=== PATIENT | male | born 1965 | race Caucasian/White ===

== ENCOUNTER 2017-09-25 19:21 | Observation (INO) | payer OTHER ==
--- NOTE | 2017-09-25 19:35 | PDOC ---
Attending Attestation - HPI HPI: 09/25/17 22:15 Patient is a 52 year old male with a significant past medical history of DM, hypertension, hyperlipidemia, PVD, S/P right below knee amputation, myeloproliferative disorder, h/o Hep b and c, hyperkalemia, who presents to the ED with complaints of general body shaking that occurred 10 minutes prior to arrival. As per patient's , patient was walking to the refrigerator to get juice when he began to experience general body shakes prompting her call EMS to have him brought to the ED for further evaluation. She reports patient has experienced this episode before and was found to have low blood sugar. Patient' s reports patient experienced x1 episode of vomiting, stating it was filled with what he previously just ate. As per EMS, BGL of patient was determined on scene to be 42, and was raised to 54 after administering oral glucose. Denies chest pain, Sob. Denies nausea, vomiting. Denies contact with sick individuals, out of state travelling. Denies any other symptoms. Allergies: None Social history: No smoking. No alcohol. No illicit drugs. Surgical history: None PMD: Dr. Saeed Madison <Rohan Colindres - Last Filed: 09/25/17 22:15> - Resident Resident Name: Lorelei Lemos - ED Attending Attestation I have performed the following: I have examined & evaluated the patient, The case was reviewed & discussed with the resident, I agree w/resident's findings & plan - Physicial Exam PE: 09/26/17 05:40 Pt has right Leg amputation. Left lower leg has PVD chronic rash and redness. Pt also has long uncut toenails. Pt has normal heart and lungs. He is overweight. Pt will be admitted for monitoring, as he took 4x the [employer]'s upper limit of Glargine. - Medical Decision Making 09/26/17 05:42 Pt will be admitted to med surg. He ought to get vascular and podiatry consultation in house. <Cheyenne Falk - Last Filed: 09/26/17 05:42>
--- NOTE | 2017-09-25 19:47 | PDOC ---
History of Present Illness <Cheyenne Falk - Last Filed: 09/25/17 22:23> - History of Present Illness Initial Comments: 09/25/17 20:08 52 year old male with a history of DM of unknown type and R AKA 2/2 DM , who presents s/p episode of shaking as witnessed by the . The patient attempted to get juice but noted increased severity of the shaking and vomiting food, so called the ambulance. There was no LOC, fall or head trauma. The patient takes Novolog 50 units BID and Basaglar 45 units at noon daily. Patient and do not have a way to check blood sugars at home, but the patient takes insulin regularly. The patient has had prior episodes of shaking that have resolved. Denies chest pain, abdominal pain, vomiting blood, etoh use. No other complaints at this time. Allergies: NKDA Past surgical history: R AKA Social History: lives with PMD: DM, unkown mental condition requiring risperidone, hypertension. 09/25/17 20:23 <Lorelei Lemos - Last Filed: 09/25/17 22:28> - General Chief Complaint: Blood Sugar Problem Stated Complaint: VOMITING Time Seen by Provider: 09/25/17 19:30 Past History <Cheyenne Falk - Last Filed: 09/25/17 22:23> - Past Medical History Asthma: Yes Diabetes: Yes (IDDM) HTN: Yes Hypercholesterolemia: Yes Psychiatric Problems: Yes (psych d/o) - Surgical History Orthopedic Surgery: Yes ([facility] 07/19/13) - Family Disease History Family Disease History: Diabetes: Father, Heart Disease: Father - Immunization History Immunization Up to Date: Yes - Suicide/Smoking/Psychosocial Hx Smoking History: Never smoked Have you smoked in the past 12 months: No Hx Alcohol Use: No Drug/Substance Use Hx: No (patient denies) Substance Use Type: None Hx Substance Use Treatment: No <Lorelei Lemos - Last Filed: 09/25/17 22:28> - Past Medical History Allergies/Adverse Reactions: Allergies Allergy/AdvReac Type Severity Reaction Status Date / Time No Known Allergies Allergy Verified 09/25/17 19:30 Home Medications: Ambulatory Orders Hydroxyurea 500 mg PO ASDIR 12/27/13 Insulin Glargine,Hum.rec.anlog [Lantus (10mL VIAL) -] 45 units SQ HS 12/27/13 Melatonin 3 mg PO HS 12/27/13 Omeprazole [Prilosec] 20 mg PO AM 12/27/13 Ziprasidone HCl [Geodon] 80 mg PO DAILY 12/27/13 metFORMIN HCL [Glucophage -] 500 mg PO BID 12/27/13 Ascorbate Calcium [Vitamin C] 500 mg PO DAILY 06/27/14 Cholecalciferol (Vitamin D3) [Vitamin D3] 2,000 unit PO DAILY 06/27/14 Acetaminophen [Tylenol .Regular Strength -] 325 mg PO Q4H PRN #60 tablet Albuterol 0.083% Nebulizer Shruthi [Ventolin 0.083% Nebulizer Soln -] 1 neb NEB QIDR #100 vial 07/06/14 Ascorbic Acid [Vitamin C -] 500 mg PO DAILY tablet 07/06/14 Aspirin 81 mg PO DAILY #0 07/06/14 Budesonide/Formeterol Fumarate [SYMBICORT 160/4.5mcg -] 2 inh IH BID #1 inhaler 07/06/14 Cholecalciferol (Vitamin D3) [Vitamin D3 -] 2,000 unit PO DAILY tab 07/06/14 Diltiazem Cd [Cardizem Cd -] 120 mg PO DAILY #30 cap.cd.24h 07/06/14 metFORMIN HCL [Glucophage -] 500 mg PO BIDI tablet 07/06/14 predniSONE [Deltasone -] 20 mg PO BID #30 tablet 07/06/14 Review of Systems - Review of Systems Is the patient limited Slovenian proficient: Yes Constitutional: No: Loss of Appetite, Weakness HEENTM: No: Blurred Vision, Recent change in vision, Double Vision, Tinnitus, Hearing Loss Respiratory: Yes: Cough Cardiac (ROS): No: Chest Pain, Palpitations, Chest Tightness ABD/GI: Yes: Vomiting. No: Constipated, Diarrhea : No: Burning, Dysuria, Hematuria, Pain, Urgency Musculoskeletal: No: Muscle Pain Neurological: Yes: Dizziness. No: Headache, Seizure, Weakness <Lorelei Lemos - Last Filed: 09/25/17 22:28> *Physical Exam - Vital Signs Last Vital Signs Temp Pulse Resp BP Pulse Ox 97.6 F 74 18 133/75 99 09/25/17 19:30 09/25/17 19:30 09/25/17 19:30 09/25/17 19:30 09/25/17 19:30 <Cheyenne Falk - Last Filed: 09/25/17 22:23> - Physical Exam Comments: 09/25/17 20:21 GENERAL: Awake, alert, and fully oriented, in no acute distress HEAD: No signs of trauma, normocephalic, atraumatic EYES: PERRLA, EOMI, sclera anicteric, conjunctiva clear ENT: Moist mucosa LUNGS: No distress, speaks full sentences, expiratory wheeze in all lung [place] HEART: Regular rate and rhythm, normal S1 and S2, no murmurs, rubs or gallops, peripheral pulses normal and equal bilaterally. ABDOMEN: Soft, nontender, normoactive bowel sounds. No guarding, no rebound. No masses EXTREMITIES : + R AKA, Normal inspection, Normal range of motion, + L edema w/ 1 + pitting edema . No clubbing or cyanosis. NEUROLOGICAL: Cranial nerves II through XII grossly intact. Normal speech, no focal sensorimotor deficits SKIN: Warm, Dry, normal turgor, no rashes or lesions noted <Lorelei Lemos - Last Filed: 09/25/17 22:28> ED Treatment Course - LABORATORY CBC & Chemistry Diagram: 09/25/17 20:12 09/25/17 20:12 - ADDITIONAL ORDERS Additional order review: Laboratory Results 09/25/17 09/25/17 09/25/17 20:20 20:12 19:28 Sodium 140 Potassium 3.8 Chloride 105 Carbon Dioxide 30 Anion Gap 5 L BUN 11 Creatinine 0.9 Creat Clearance w eGFR > 60 POC Glucometer 62.65432 Random Glucose 70 L D Calcium 8.7 Total Bilirubin 0.4 AST 86 H D ALT 131 H D Alkaline Phosphatase 85 Total Protein 7.1 Albumin 3.5 Urine Color Straw Urine Appearance Clear Urine pH 7.0 Ur Specific [place] 1.004 Urine Protein Negative Urine Glucose (UA) Negative Urine Ketones Negative Urine Blood 1+ H Urine Nitrite Negative Urine Bilirubin Negative Urine Urobilinogen Negative Ur Leukocyte Esterase Negative 09/25/17 09/25/17 20:12 19:28 RBC 3.96 L MCV 98.8 H MCHC 34.2 RDW 12.6 D MPV 7.7 POC Glucometer 62.50813 <Cheyenne Falk - Last Filed: 09/25/17 22:23> - LABORATORY CBC & Chemistry Diagram: 09/25/17 20:12 09/25/17 20:12 <Lorelei Lemos - Last Filed: 09/25/17 22:28> Medical Decision Making - Medical Decision Making 09/25/17 20:24 52 year old male with a history of DM of unknown type and R AKA 2/2 DM , who presents s/p episode of shaking as witnessed by the . The patient has had similar episodes in the past that were due to hypoglycemia. En route to the ED POC glucose was 50 and 62 in the ED. The patient last took Novolog 50 units at 1500 and Basaglar 45 units at 1200. Patients symptoms and history are most consistent with hypoglycemia, also considered ACS, seizure, uti. These are less likely etiologies, however were considered as patient has a history of chest pain and takes ASA PRN, has unknown psychiatric/mental condition, and requires care by . Novolog and Basaglar pharmacokinetics were researched and found novolog peak at 60 min after dose administration, and basaglar peaks 12 hours after dose. Patient will need to be monitored overnight for concern over hypogylcemia. Plan: - evaluate labs: CBC, CMP, EKG, UA - admit to inpatient medicine 09/25/17 22:28 <Lorelei Lemos - Last Filed: 09/25/17 22:28> *DC/Admit/Observation/Transfer - Discharge Dispostion Decision to Admit order: Yes <Cheyenne Falk - Last Filed: 09/25/17 22:23> - Discharge Dispostion Decision to Admit order: Yes <Lorelei Lemos - Last Filed: 09/25/17 22:28> Diagnosis at time of Disposition: Hypoglycemia associated with diabetes, PVD (peripheral vascular disease) - Discharge Dispostion Condition at time of disposition: Guarded - Referrals Referrals: Saeed Madison MD [Primary Care Provider] -
[2017-09-25 20:33] LABS: HEMATOCRIT 39.2 % (35.4-49); HEMOGLOBIN 13.4 GM/dL (11.7-16.9); MCH 33.8 pg (25.7-33.7); MCHC 34.2 g/dl (32.0-35.9); MEAN CELL VOLUME 98.8 fl (80-96); MEAN PLT VOLUME 7.7 fl (7.5-11.1); PLATELET COUNT 505 K/MM3 (134-434); RBC 3.96 M/mm3 (4.00-5.60); RDW 12.6 % (11.9-15.9); WHITE BLOOD COUNT 7.2 K/mm3 (4.0-10.0)
[2017-09-25 20:34] LABS: URINE APPEARANCE CLEAR; URINE BILIRUBIN NEGATIVE (<2.0 mg/dL); URINE COLOR STRAW; URINE GLUCOSE (UA) NEGATIVE (NEGATIVE); URINE KETONE NEGATIVE (NEGATIVE); URINE LEUK ESTERASE NEGATIVE (NEGATIVE); URINE NITRITE NEGATIVE (NEGATIVE); URINE PROTEIN NEGATIVE (NEGATIVE); URINE UROBILINOGEN NEGATIVE mg/dL (0.2-1.0)
[2017-09-25 20:55] LABS: ALBUMIN 3.5 g/dl (3.4-5.0); ANION GAP 5 (8-16); BLOOD UREA NITROGEN 11 mg/dL (7-18); CALCIUM 8.7 mg/dL (8.5-10.1); CHLORIDE 105 mmol/L (98-107); CO2 30 mmol/L (21-32); CREATININE 0.9 mg/dL (0.7-1.3); GLUCOSE,RANDOM 70 mg/dL (74-106); POTASSIUM 3.8 mmol/L (3.5-5.1); SGOT/AST 86 U/L (15-37); SGPT/ALT 131 U/L (12-78); SODIUM 140 mmol/L (136-145)
[2017-09-25 20:57] LABS: ALK PHOS 85 U/L (45-117); BILIRUBIN,TOTAL 0.4 mg/dL (0.2-1.0); TOT PROT 7.1 g/dl (6.4-8.2)
[2017-09-25] MEDS ORDERED: DEXTROSE 5%-WATER - 1,000 ML IV SCH ×2 (21:45→21:55)
[2017-09-25] MEDS ORDERED: predniSONE 10 MG TABLET (UD) PO SCH (22:00)
[2017-09-25] MEDS ORDERED: predniSONE 20 MG TABLET (UD) ONE (22:06)
[2017-09-25] MEDS: MELATONIN 1 MG TABLET PO SCH (22:55)
[2017-09-25] MEDS: BUDESONIDE/FORMETEROL FUMARATE 160/4.5 mcg INHALER IH SCH (22:55)
[2017-09-26 06:15] LABS: BASO % 0.6 % (0-2.0); EOS % 2.2 % (0-4.5); HEMATOCRIT 40.1 % (35.4-49); LYMPH % 23.8 % (8-40); MCH 34.4 pg (25.7-33.7); MEAN CELL VOLUME 98.2 fl (80-96); MEAN PLT VOLUME 7.6 fl (7.5-11.1); MONO % 8.2 % (3.8-10.2); NEUT % 65.2 % (42.8-82.8); PLATELET COUNT 495 K/MM3 (134-434); RBC 4.08 M/mm3 (4.00-5.60); RDW 13.1 % (11.9-15.9); WHITE BLOOD COUNT 7.2 K/mm3 (4.0-10.0)
[2017-09-26 06:41] LABS: ALBUMIN 3.3 g/dl (3.4-5.0); ANION GAP 7 (8-16); BILIRUBIN,TOTAL 0.4 mg/dL (0.2-1.0); BLOOD UREA NITROGEN 8 mg/dL (7-18); CALCIUM 8.7 mg/dL (8.5-10.1); CHLORIDE 105 mmol/L (98-107); CO2 28 mmol/L (21-32); CREATININE 0.8 mg/dL (0.7-1.3); GLUCOSE,RANDOM 102 mg/dL (74-106); POTASSIUM 3.8 mmol/L (3.5-5.1); SGOT/AST 76 U/L (15-37); SGPT/ALT 123 U/L (12-78); SODIUM 140 mmol/L (136-145)
[2017-09-26 06:49] LABS: ALK PHOS 65 U/L (45-117)
[2017-09-26] MEDS ORDERED: INSULIN SLIDING SCALE (NOVOLOG) 1 VIAL SQ SCH (07:00)
[2017-09-26] MEDS ORDERED: ALBUTEROL SO4 0.083% IH SOL 2.5 MG/3 ML VIAL.NEB. NEB ONE (08:26)
[2017-09-26] MEDS: ALBUTEROL SO4 0.083% IH SOL 2.5 MG/3 ML VIAL.NEB. NEB SCH ×4 (08:36→20:21)
--- NOTE | 2017-09-26 09:00 | HP ---
Admitting History and Physical - Primary Care Physician PCP: Saeed Madison - Admission Chief Complaint: Feeling shaky History of Present Illness: 52 yrs old male complex medical history, compliant with meds h/o HTN, T2DM on Insulin, Dyslipedemia, PAd s/p Rt LE BKA amputation,, Myeloproliferative Disorders, Chronic Hep B and C with deranged LFts, yesterday present to Ed for evaluation of shikness and Dizziness after taking 45 units of Long acting Insulin, patient doesn't have a Glucometer at home called 911 came to Ed for evaluation as per EMT FS was reported < 50 on arrival FS was 60, patient has no clinical evidence of infectious process , denies any chest pain SOB or Palpitation also c/o Rt stump pain. - Past Medical History Cardiovascular: Yes: HTN, Hyperlipdemia Pulmonary: Yes: Asthma Hepatobiliary: Yes: Hepatitis B, Hepatitis C Heme/Onc: Yes: Myeloproliferative Synd, Other (thrombocytosis) Psych: Yes: Bipolar Musculoskeletal: Yes: Other (s/p Right bka) Endocrine: Yes: Diabetes Mellitus - Past Surgical History Past Surgical History: Yes: Amputation - Smoking History Smoking history: Never smoked Have you smoked in the past 12 months: No - Alcohol/Substance Use Hx Alcohol Use: No - Social History Usual Living Arrangement: Yes: With Spouse Home Medications - Allergies Allergies/Adverse Reactions: Allergies Allergy/AdvReac Type Severity Reaction Status Date / Time No Known Allergies Allergy Verified 09/25/17 19:30 - Home Medications Home Medications: Ambulatory Orders Aspirin 81 mg PO DAILY 09/25/17 Atorvastatin Ca [Lipitor] 80 mg PO HS 09/25/17 Carvedilol [Coreg -] 12.5 mg PO BID 09/25/17 Cholecalciferol (Vitamin D3) [Vitamin D3 -] 2,000 unit PO DAILY 09/25/17 Clopidogrel Bisulfate [Plavix] 75 mg PO DAILY 09/25/17 Diphenhydramine [Benadryl -] 50 mg PO HS 09/25/17 Hydroxyurea 500 mg PO DAILY 09/25/17 Insulin Aspart [Novolog] 0 unit SQ ASDIR 09/25/17 Isosorbide Mononitrate [Isosorbide Mononitrate ER] 30 mg PO DAILY 09/25/17 Lisinopril [Prinivil] 5 mg PO DAILY 09/25/17 Metformin HCl [Glucophage] 500 mg PO BID 09/25/17 Risperidone 3 mg PO DAILY 09/25/17 Family Disease History - Family Disease History Family History: Unremarkable Review of Systems - Review of Systems Constitutional: reports: Diaphoresis, Lethargy, Malaise. denies: Chills, Fever , Loss of Appetite, Night Sweats Eyes: denies: Blurred Vision, Double Vision, Eye Pain HENT: denies: Difficult Swallowing, Ear Discharge, Ear Pain Neck: denies: Decreased ROM, Lumps, Pain on Movement Cardiovascular: denies: Chest Pain, Edema, Palpitations, Shortness of Breath Respiratory: denies: Cough, Exercise Intolerance, Hemoptysis, Orthopnea, SOB Gastrointestinal: denies: Abdominal Pain, Bloating, Constipation Genitourinary: denies: Burning, Discharge, Dysuria Musculoskeletal: denies: Back Pain, Crepitus Integumentary: denies: Blister, Bruising, Change in Color Neurological: denies: Change in LOC, Change in Speech, Confusion Endocrine: denies: Excessive Sweating, Flushing, Increased Hunger Hematology/Lymphatic: denies: Easily Bruised, Excessive Bleeding Psychiatric: denies: Altered Sleep Pattern, Anxiety Physical Examination Vital Signs: Last Vital Signs Temp Pulse Resp BP Pulse Ox 97.6 F 74 18 133/75 99 09/25/17 19:30 09/25/17 19:30 09/25/17 19:30 09/25/17 19:30 09/25/17 19:30 Physical Exam GENERAL: Awake, alert, and fully oriented, in no acute distress HEENT: No signs of trauma, normocephalic, atraumatic , PERRLA, EOMI, sclera anicteric, conjunctiva clear, Moist mucosa LUNGS: No distress, speaks full sentences, expiratory wheeze in all lung [place] HEART: Regular rate and rhythm, normal S1 and S2, no murmurs, rubs or gallops, peripheral pulses normal and equal bilaterally. ABDOMEN: Soft, nontender, normoactive bowel sounds. No guarding, no rebound. No masses EXTREMITIES : Right BKA, Normal inspection, Normal range of motion, + L edema w / 1+ pitting edema . No clubbing or cyanosis. NEUROLOGICAL: Cranial nerves II through XII grossly intact. Normal speech, no focal sensorimotor deficits SKIN: Warm, Dry, normal turgor, no rashes or lesions noted Labs: CBC, BMP 09/26/17 06:05 09/26/17 06:05 Imaging - Results Chest X-ray: Report Reviewed (No acute changes) EKG: Report Reviewed ([address] chnages) Problem List - Problems (1) Hypoglycemia associated with diabetes Assessment/Plan: Most likely medication mismanagement , doesnt have a Glucometer at home needs Diabetic teaching, no clinical sign of infection F/U HBAIC Hold Po meds and Standing Insulin, D5 75 CC/HR F/U FS Q3 hrly and optimize dose in am. Code(s): E11.649 - TYPE 2 DIABETES MELLITUS WITH HYPOGLYCEMIA WITHOUT COMA (2) PVD (peripheral vascular disease) Assessment/Plan: S/p RT BKA cont statin, BP control ASa and Plavix Code(s): I73.9 - PERIPHERAL VASCULAR DISEASE, UNSPECIFIED (3) Elevated liver function tests Code(s): R79.89 - OTHER SPECIFIED ABNORMAL FINDINGS OF BLOOD CHEMISTRY (4) Hepatitis B Assessment/Plan: Chronic LFts are stable Code(s): B19.10 - UNSPECIFIED VIRAL HEPATITIS B WITHOUT HEPATIC COMA (5) Myeloproliferative disease Assessment/Plan: Chronic on Hydroxyurea Code(s): D47.1 - CHRONIC MYELOPROLIFERATIVE DISEASE (6) Hypertension Assessment/Plan: Well controlled on current meds cont optimization. Code(s): I10 - ESSENTIAL (PRIMARY) HYPERTENSION (7) T2DM (type 2 diabetes mellitus) Assessment/Plan: Poorly controlled Diabetic education neeeds optimization Hold Diabetic meds for the episode of Hypoglycemia. patient has poor Liver reserve Code(s): E11.9 - TYPE 2 DIABETES MELLITUS WITHOUT COMPLICATIONS
--- NOTE | 2017-09-26 09:03 | EKG ---
Test Reason : Blood Pressure : / mmHG Vent. Rate : 073 BPM Atrial Rate : 073 BPM P-R Int : 160 ms QRS Dur : 068 ms QT Int : 390 ms P-R-T Axes : 068 036 033 degrees QTc Int : 429 ms NORMAL SINUS RHYTHM LOW VOLTAGE QRS BORDERLINE ECG WHEN COMPARED WITH ECG OF 04-JUL-2014 08:21, NONSPECIFIC T WAVE ABNORMALITY NOW EVIDENT IN INFERIOR LEADS T WAVE AMPLITUDE HAS DECREASED IN ANTERIOR LEADS Confirmed by FRANKIE MEZA MD ([id number]) on 09/26/2017 9:03:01 AM Referred By: Confirmed By:FRANKIE MEZA MD
[2017-09-26] MEDS ORDERED: CHOLECALCIFEROL (VITAMIN D3) 1,000 UNIT TABLET (FP) PO SCH (10:00)
[2017-09-26] MEDS ORDERED: ASPIRIN COATED 81 MG TABLET.EC PO SCH (10:00)
[2017-09-26] MEDS: CLOPIDOGREL BISULFATE 75 MG TABLET (FP) PO SCH (10:55)
[2017-09-26] MEDS: LISINOPRIL 5 MG TABLET (FP) PO SCH (10:55)
[2017-09-26] MEDS: HYDROXYUREA 500 MG CAPSULE PO SCH (10:55)
[2017-09-26] MEDS: ENOXAPARIN NA (PORCINE) 40 MG/0.4 ML DISP.SYRIN SQ SCH (10:55)
[2017-09-26] MEDS: ZIPRASIDONE 40 MG CAPSULE (FP) PO SCH (10:55)
[2017-09-26] MEDS: PANTOPRAZOLE 20 MG TABLET (FP) PO SCH (10:56)
[2017-09-26] MEDS: ASCORBIC ACID 500 MG TABLET (FP) PO SCH (10:56)
[2017-09-26] MEDS: ASPIRIN 81 MG CHEWABLE TABLETS PO SCH (10:56)
[2017-09-26] MEDS: CARVEDILOL 12.5 MG TABLET (FP) PO SCH ×2 (10:56→21:53)
[2017-09-26] MEDS: CHOLECALCIFEROL (VITAMIN D3) 1,000 UNIT TABLET (FP) PO SCH (10:56)
[2017-09-26] MEDS: BUDESONIDE/FORMETEROL FUMARATE 160/4.5 mcg INHALER IH SCH ×2 (14:15→21:54)
--- NOTE | 2017-09-26 14:15 | PN ---
Progress Note, Physician Chief Complaint: Mr Yu without complaint. Denies cp, sob, n/v. - Current Medication List Current Medications: Active Medications Albuterol Sulfate (Ventolin 0.083% Nebulizer Soln -) 1 amp NEB RQID [facility] Last Admin: 09/26/17 12:45 Dose: 1 amp Ascorbic Acid (Vitamin C -) 500 mg PO DAILY [facility] Last Admin: 09/26/17 10:56 Dose: 500 mg Aspirin (Asa -) 81 mg PO DAILY [facility] Last Admin: 09/26/17 10:56 Dose: 81 mg Atorvastatin Calcium (Lipitor -) 80 mg PO HS [facility] Budesonide/Formoterol Fumarate (Symbicort 160/4.5mcg -) 2 puff IH BID [facility] Last Admin: 09/25/17 22:55 Dose: Not Given Carvedilol (Coreg -) 12.5 mg PO BID [facility] Last Admin: 09/26/17 10:56 Dose: 12.5 mg Cholecalciferol (Vitamin D3 -) 2,000 unit PO DAILY [facility] Last Admin: 09/26/17 10:56 Dose: 2,000 unit Clopidogrel Bisulfate (Plavix -) 75 mg PO DAILY [facility] Last Admin: 09/26/17 10:55 Dose: 75 mg Diltiazem HCl (Cardizem Cd -) 120 mg PO DAILY [facility] Last Admin: 09/26/17 10:56 Dose: 120 mg Diphenhydramine HCl (Benadryl -) 50 mg PO HS [facility] Enoxaparin Sodium (Lovenox -) 40 mg SQ DAILY [facility] Last Admin: 09/26/17 10:55 Dose: 40 mg Hydroxyurea (Hydrea -) 500 mg PO DAILY [facility] Last Admin: 09/26/17 10:55 Dose: 500 mg Insulin Aspart (Novolog Vial Sliding Scale -) 1 vial SQ TIDAC [facility]; Protocol Last Admin: 09/26/17 08:36 Dose: Not Given Lisinopril (Prinivil) 5 mg PO DAILY [facility] Last Admin: 09/26/17 10:55 Dose: 5 mg Melatonin (Melatonin) 3 mg PO HS [facility] Last Admin: 09/25/17 22:55 Dose: Not Given Pantoprazole Sodium (Protonix -) 20 mg PO DAILY [facility] Last Admin: 09/26/17 10:56 Dose: 20 mg Ziprasidone (Geodon -) 80 mg PO DAILY [facility] Last Admin: 09/26/17 10:55 Dose: 80 mg - Objective Vital Signs: Vital Signs Temperature 36.6 C 09/26/17 06:58 Pulse Rate 65 09/26/17 13:00 Respiratory Rate 17 09/26/17 13:00 Blood Pressure 125/65 09/26/17 13:00 O2 Sat by Pulse Oximetry (%) 99 09/26/17 13:00 Constitutional: Yes: Well Nourished, No Distress, Calm Cardiovascular: Yes: Regular Rate and Rhythm. No: Gallop, Murmur, Rub Respiratory: Yes: Regular, CTA Bilaterally. No: Rales, Rhonchi, Wheezes Gastrointestinal: Yes: Normal Bowel Sounds, Soft. No: Distention, Tenderness Extremities: Yes: WNL Edema: No Labs: CBC, BMP 09/26/17 06:05 09/26/17 06:05 Problem List - Problems (1) Hypoglycemia associated with diabetes Assessment/Plan: -patient refuses to check blood sugars at home -has been well maintained in the outpatient setting -unclear which caused this episode -hold on scheduled insulin -stop D5W -consult endocrinology -continue FSBS Code(s): E11.649 - TYPE 2 DIABETES MELLITUS WITH HYPOGLYCEMIA WITHOUT COMA (2) Hypertension Assessment/Plan: -controlled -continue home regimen Code(s): I10 - ESSENTIAL (PRIMARY) HYPERTENSION (3) Hepatitis C Assessment/Plan: -present Code(s): B19.20 - UNSPECIFIED VIRAL HEPATITIS C WITHOUT HEPATIC COMA Qualifiers: Viral hepatitis chronicity: chronic Hepatic coma status: without hepatic coma Qualified Code(s): B18.2 - Chronic viral hepatitis C (4) Myeloproliferative disease Assessment/Plan: -stable Code(s): D47.1 - CHRONIC MYELOPROLIFERATIVE DISEASE (5) PVD (peripheral vascular disease) Assessment/Plan: -continue plavix -vascular consulted Code(s): I73.9 - PERIPHERAL VASCULAR DISEASE, UNSPECIFIED
[2017-09-26] MEDS: INSULIN SLIDING SCALE (NOVOLOG) 1 VIAL SQ SCH ×2 (18:27→21:54)
[2017-09-26 19:07] VITALS: BMI 33.0
[2017-09-26] MEDS ORDERED: PT OWN MED DRAWER 7, Y5N ONE (20:08)
[2017-09-26] MEDS: MELATONIN 1 MG TABLET PO SCH (21:53)
[2017-09-26] MEDS ORDERED: ATORVASTATIN CA 80 MG TABLET (FP) PO SCH (22:00)
[2017-09-26] MEDS ORDERED: diphenhydrAMINE HCL 25 MG CAPSULE (FP) PO SCH (22:00)
[2017-09-27] MEDS: INSULIN SLIDING SCALE (NOVOLOG) 1 VIAL SQ SCH ×3 (06:05→17:15)
[2017-09-27] MEDS: ALBUTEROL SO4 0.083% IH SOL 2.5 MG/3 ML VIAL.NEB. NEB SCH ×3 (07:20→15:50)
[2017-09-27] MEDS: ENOXAPARIN NA (PORCINE) 40 MG/0.4 ML DISP.SYRIN SQ SCH ×2 (10:08→11:25)
[2017-09-27] MEDS: ASPIRIN 81 MG CHEWABLE TABLETS PO SCH (10:09)
[2017-09-27] MEDS: LISINOPRIL 5 MG TABLET (FP) PO SCH (10:09)
[2017-09-27] MEDS: CHOLECALCIFEROL (VITAMIN D3) 1,000 UNIT TABLET (FP) PO SCH (10:09)
[2017-09-27] MEDS: ZIPRASIDONE 40 MG CAPSULE (FP) PO SCH (10:10)
[2017-09-27] MEDS: HYDROXYUREA 500 MG CAPSULE PO SCH (10:10)
[2017-09-27] MEDS: CLOPIDOGREL BISULFATE 75 MG TABLET (FP) PO SCH ×2 (10:11→11:25)
[2017-09-27] MEDS: CARVEDILOL 12.5 MG TABLET (FP) PO SCH (10:11)
[2017-09-27] MEDS: PANTOPRAZOLE 20 MG TABLET (FP) PO SCH (10:11)
[2017-09-27] MEDS: ASCORBIC ACID 500 MG TABLET (FP) PO SCH (10:11)
[2017-09-27] MEDS ORDERED: INSULIN (NOVOLOG) ASPART 100 UNITS/ML 10ML VIAL ONE (11:21)
--- NOTE | 2017-09-27 12:49 | DS ---
Physical Examination Vital Signs: Vital Signs Temperature 36.6 C 09/27/17 09:00 Pulse Rate 63 09/27/17 09:00 Respiratory Rate 20 09/27/17 09:00 Blood Pressure 119/70 09/27/17 09:00 O2 Sat by Pulse Oximetry (%) 95 09/26/17 21:00 Constitutional: Yes: Well Nourished, No Distress, Calm Cardiovascular: Yes: Regular Rate and Rhythm. No: Gallop, Murmur, Rub Respiratory: Yes: Regular, CTA Bilaterally. No: Rales, Rhonchi, Wheezes Gastrointestinal: Yes: Normal Bowel Sounds, Soft. No: Distention, Tenderness Extremities: Yes: WNL Edema: No Labs: CBC, BMP 09/26/17 06:05 09/26/17 06:05 Discharge Summary Reason For Visit: INSULIN DEP-DIABETES,PERIPHERAL VAS.DISEAS,HYPOGLY Current Active Problems Hypoglycemia associated with diabetes (Acute) PVD (peripheral vascular disease) (Acute) T2DM (type 2 diabetes mellitus) (Acute) Hospital Course: (1) Hypoglycemia associated with diabetes Code(s): E11.649 - TYPE 2 DIABETES MELLITUS WITH HYPOGLYCEMIA WITHOUT COMA (2) Hypertension Assessment/Plan: -controlled -continue home regimen Code(s): I10 - ESSENTIAL (PRIMARY) HYPERTENSION (3) Hepatitis C Code(s): B19.20 - UNSPECIFIED VIRAL HEPATITIS C WITHOUT HEPATIC COMA Qualifiers: Viral hepatitis chronicity: chronic Hepatic coma status: without hepatic coma Qualified Code(s): B18.2 - Chronic viral hepatitis C (4) Myeloproliferative disease Code(s): D47.1 - CHRONIC MYELOPROLIFERATIVE DISEASE (5) PVD (peripheral vascular disease) Code(s): I73.9 - PERIPHERAL VASCULAR DISEASE, UNSPECIFIED Mr Yu is a pleasant 52 year old male who comes in with hypoglycemia secondary to insulin use. He was admitted to the hospital and originally started on D5W, this was discontinued. He was placed on a diabetic diet and SSI. While here he only required 6 units of insulin. He was seen by podiatry and his nails were clipped. He was seen by endocrinology and recommended he be placed on novolog 5 units tidac and basaglar 10 units qhs and to follow up in the office tomorrow. He is stable for discharge home. 33 minutes spent in preparation of this discharge Condition: Stable - Instructions Diet, Activity, Other Instructions: Diabetic diet. Resume previous activity. Check blood sugars three times a day and call Dr Madison in the next 24-48 hours for further adjustments. Endocrinology follow up tomorrow. Take basaglar 10 units qhs and novolog 5 units with meals. Referrals: Fredrick Keyes MD [Staff Physician] - Saeed Madison MD [Primary Care Provider] - 1 Week Elijah Pozo MD [Staff Physician] - Disposition: HOME - Home Medications Comprehensive Discharge Medication List: Ambulatory Orders Aspirin 81 mg PO DAILY 09/25/17 Atorvastatin Ca [Lipitor] 80 mg PO HS 09/25/17 Carvedilol [Coreg -] 12.5 mg PO BID 09/25/17 Cholecalciferol (Vitamin D3) [Vitamin D -] 2,000 unit PO DAILY 09/25/17 Clopidogrel Bisulfate [Plavix] 75 mg PO DAILY 09/25/17 Diphenhydramine [Benadryl Capsule -] 50 mg PO HS 09/25/17 Hydroxyurea 500 mg PO DAILY 09/25/17 Isosorbide Mononitrate [Isosorbide Mononitrate ER] 30 mg PO DAILY 09/25/17 Lisinopril [Prinivil] 5 mg PO DAILY 09/25/17 Metformin HCl [Glucophage] 500 mg PO BID 09/25/17 Risperidone 3 mg PO DAILY 09/25/17 Albuterol 0.083% Nebulizer Shruthi [Ventolin 0.083% Nebulizer Soln -] 1 amp NEB RQID amp 09/27/17 Ascorbic Acid [Vitamin C -] 500 mg PO DAILY tablet 09/27/17 Budesonide/Formeterol Fumarate [SYMBICORT 160/4.5mcg -] 2 puff IH BID inhaler 09/27/17 Diltiazem Cd [Cardizem Cd -] 120 mg PO DAILY cap.cd.24h 09/27/17 Ziprasidone [Geodon -] 80 mg PO DAILY capsule 09/27/17
[2017-09-27 13:57] VITALS: BP 113/63; PULSE 76; TEMP 98.1
[2017-09-27] MEDS: BUDESONIDE/FORMETEROL FUMARATE 160/4.5 mcg INHALER IH SCH (14:04)
--- NOTE | 2017-09-27 14:43 | CONSULT ---
Consult - text type - Consultation Consultation Note: Podiatry Consultation: 52 year old IDDM M presents with dizziness after taking insulin at home. 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 Podiatry consultation requested for trimming of toe nails x 5 L foot. PMHx: IDDM, HTN, HLP, PVD s/p RLE BKA, HLP, Hep C, h/o MRSA Meds: noted ALL: NKMA MINESH: L foot: pedal pulses 1/4, TG wnl, CFT brisk to all toes. Nails are elongated, discolored, thickened, brittle, tender x 5. There are no nail bed ulcers, no signs of infection. Epicritic sensation grossly decreased. Imp: 52 year old DM M with onychomycosis x 5 1. Manual debridement of mycotic nails x 5 using nail nipper. 2. Appropriate diabetic foot hygiene discussed with patient. 3. Patient can f/u outpatient in 3 months for routine care. Thank you for the courtesy of this consultation. Ramesh Keyes DPM
--- NOTE | 2017-09-27 15:09 | CONSULT ---
Consult Consult Specialty:: Endocrinology Referred by:: Dr Woods Reason for Consultation:: Uncontrolled blood sugar - History of Present Illness Chief Complaint: Hypoglycemia History of Present Illness: This is a 52 year old male with a history of DM for about 18 years, on Insulin for 15 years, and R AKA who presented s/p episode of shaking as witnessed by the . The patient attempted to get juice but noted increased severity of the shaking and vomiting food, so called the ambulance. There was no LOC, fall or head trauma. The patient takes Novolog 35 units BID and Basaglar 45 units at noon daily. Patient and do not have a way to check blood sugars at home, but the patient takes insulin regularly. The patient has had prior episodes of shaking that have resolved. Denies chest pain , abdominal pain, vomiting blood, etoh use. No other complaints at this time. Pt referred for management of blood sugar. Pt denies any visual symptoms, No paresthesia of feet - History Source History Provided By: Patient, Medical Record - Past Medical History Cardio/Vascular: Yes: HTN, Hyperlipdemia Pulmonary: Yes: Asthma Hepatobiliary: Yes: Hepatitis B, Hepatitis C Psych: Yes: Bipolar Musculoskeletal: Yes: Other (s/p Right bka) Endocrine: Yes: Diabetes Mellitus - Past Surgical History Past Surgical History: Yes: Amputation - Alcohol/Substance Use Hx Alcohol Use: Yes - Smoking History Smoking history: Former smoker Have you smoked in the past 12 months: No Home Medications - Allergies Allergies/Adverse Reactions: Allergies Allergy/AdvReac Type Severity Reaction Status Date / Time No Known Allergies Allergy Verified 09/25/17 19:30 - Home Medications Home Medications: Ambulatory Orders Aspirin 81 mg PO DAILY 09/25/17 Atorvastatin Ca [Lipitor] 80 mg PO HS 09/25/17 Carvedilol [Coreg -] 12.5 mg PO BID 09/25/17 Cholecalciferol (Vitamin D3) [Vitamin D -] 2,000 unit PO DAILY 09/25/17 Clopidogrel Bisulfate [Plavix] 75 mg PO DAILY 09/25/17 Diphenhydramine [Benadryl Capsule -] 50 mg PO HS 09/25/17 Hydroxyurea 500 mg PO DAILY 09/25/17 Isosorbide Mononitrate [Isosorbide Mononitrate ER] 30 mg PO DAILY 09/25/17 Lisinopril [Prinivil] 5 mg PO DAILY 09/25/17 Metformin HCl [Glucophage] 500 mg PO BID 09/25/17 Risperidone 3 mg PO DAILY 09/25/17 Albuterol 0.083% Nebulizer Shruthi [Ventolin 0.083% Nebulizer Soln -] 1 amp NEB RQID amp 09/27/17 Alcohol Antiseptic Pads [Alcohol Swabs] 1 each TP ACHS #1 box 09/27/17 Ascorbic Acid [Vitamin C -] 500 mg PO DAILY tablet 09/27/17 Budesonide/Formeterol Fumarate [SYMBICORT 160/4.5mcg -] 2 puff IH BID inhaler 09/27/17 Diltiazem Cd [Cardizem Cd -] 120 mg PO DAILY cap.cd.24h 09/27/17 Lancets [Lancets Thin] 1 each MC ACHS #100 each 09/27/17 Miscellaneous Medical Supply [Glucometer Device] 1 each SQ ASDIR #1 kit Miscellaneous Medical Supply [Glucometer Test Strips #100] 1 each SQ ASDIR #1 box 09/27/17 Ziprasidone [Geodon -] 80 mg PO DAILY capsule 09/27/17 Family Disease History - Family Disease History Family Disease History: Diabetes: Mother Review of Systems - Review of Systems Constitutional: reports: No Symptoms Eyes: reports: No Symptoms HENT: reports: No Symptoms Neck: reports: No Symptoms Cardiovascular: reports: No Symptoms Respiratory: reports: No Symptoms Gastrointestinal: reports: No Symptoms Genitourinary: reports: No Symptoms Breasts: reports: No Symptoms Reported Musculoskeletal: reports: No Symptoms Integumentary: reports: No Symptoms Neurological: reports: No Symptoms Endocrine: reports: No Symptoms Hematology/Lymphatic: reports: No Symptoms Physical Exam Vital Signs: Vital Signs Temperature 98.1 F 09/27/17 13:55 Pulse Rate 76 09/27/17 13:55 Respiratory Rate 20 09/27/17 13:55 Blood Pressure 113/63 09/27/17 13:55 O2 Sat by Pulse Oximetry (%) 95 09/27/17 09:00 Constitutional: Yes: Well Nourished, No Distress Eyes: Yes: Conjunctiva Clear, EOM Intact HENT: Yes: Atraumatic, Normocephalic Neck: Yes: Supple, Trachea Midline Cardiovascular: Yes: Regular Rate and Rhythm Respiratory: Yes: Regular, CTA Bilaterally Gastrointestinal: Yes: Normal Bowel Sounds, Soft Extremities: Yes: Other (R BKA) Edema: No Labs: CBC, BMP 09/26/17 06:05 09/26/17 06:05 Assessment/Plan AP: DM: Uncontrolled Hypoglycemia S/P Rt BKA HTN HLD Continue Novolog SS coverage for now Restart Basal Inslun 10 units daily at HS If he is discharged today, to be sent home on Basaglar 10 daily at HS and Novolog 5 units TID with meals and f/u in office tomorrow.
== END 2017-09-27 18:28 | disposition home or self-care (01) ==
LOC: JER 19:21 → UNDOADMOB 21:31 → INTOOBSV 21:31 → JERBED 21:31 → J7W 09-26 16:20
PROVIDERS: ADMIT Internal Medicine; ATTEND Internal Medicine
PROC: 3E0337Z Introduction of Electrolytic and Water Balance Substance into Peripheral Vein, Percutaneous Approach (ICD-10-PCS; principal; 2017-09-26)
PROC: 3E013VG Introduction of Insulin into Subcutaneous Tissue, Percutaneous Approach (ICD-10-PCS; 2017-09-26)
PROC: 3E013GC Introduction of Other Therapeutic Substance into Subcutaneous Tissue, Percutaneous Approach (ICD-10-PCS; 2017-09-26)
PROC: 3E0F7GC Introduction of Other Therapeutic Substance into Respiratory Tract, Via Natural or Artificial Opening (ICD-10-PCS; 2017-09-26)
DX: E11.649 Type 2 diabetes mellitus with hypoglycemia without coma (principal); Z79.4 Long term (current) use of insulin; Z79.84 Long term (current) use of oral hypoglycemic drugs; I73.9 Peripheral vascular disease, unspecified; I10 Essential (primary) hypertension; J45.909 Unspecified asthma, uncomplicated; Z79.82 Long term (current) use of aspirin; Z89.611 Acquired absence of right leg above knee; E78.5 Hyperlipidemia, unspecified; B18.2 Chronic viral hepatitis C; B18.1 Chronic viral hepatitis B without delta-agent; R94.5 Abnormal results of liver function studies; D47.1 Chronic myeloproliferative disease
CPT/HCPCS: 36415; 71045-TC-FY; 80053; 81003; 81015; 82962; 84443; 85025; 85027; 93005; 93010; 94640; 96372; 99285-25; G0378; J8999

== ENCOUNTER 2018-04-04 13:30 | Emergency (ER) | payer OTHER ==
--- NOTE | 2018-04-04 13:45 | PDOC ---
Rapid Medical Evaluation Medical Evaluation: Allergies Allergy/AdvReac Type Severity Reaction Status Date / Time No Known Allergies Allergy Verified 04/04/18 13:40 I have performed a brief in-person evaluation of this patient. The patient presents with a chief complaint of: C/O bleeding from site of R knee stump from 2 days ago; denies fever Pertinent physical exam findings: No active bleeding from site, no warmth to site of stump, no pustular discharge, no open wound; patient is on Plavix I have ordered the following: Nothing The patient will proceed to the ED for further evaluation. 04/04/18 13:40
[2018-04-04 13:48] VITALS: BP 115/48; PULSE 86; TEMP 98.2; BMI 29.0
--- NOTE | 2018-04-04 14:47 | PDOC ---
History of Present Illness - General Chief Complaint: Wound Stated Complaint: LEG PAIN Time Seen by Provider: 04/04/18 14:27 History Source: Patient Exam Limitations: Clinical Condition - History of Present Illness Initial Comments: 04/04/18 14:51 Patient with insulin-dependent diabetes and peripheral vascular disease status post below-knee amputation of right knee for years ago present with complaint of redness and bleeding from skin of prosthetic insertion site of right knee for 3 days. Patient reported increased pain with ambulation with prosthetic. Patient denied fever, chills or any other symptoms. Timing/Duration: other (3 days) Past History - Past Medical History Allergies/Adverse Reactions: Allergies Allergy/AdvReac Type Severity Reaction Status Date / Time No Known Allergies Allergy Verified 04/04/18 13:40 Home Medications: Ambulatory Orders Aspirin 81 mg PO DAILY 09/25/17 Atorvastatin Ca [Lipitor] 80 mg PO HS 09/25/17 Carvedilol [Coreg -] 12.5 mg PO BID 09/25/17 Cholecalciferol (Vitamin D3) [Vitamin D -] 2,000 unit PO DAILY 09/25/17 Clopidogrel Bisulfate [Plavix] 75 mg PO DAILY 09/25/17 Diphenhydramine [Benadryl Capsule -] 50 mg PO HS 09/25/17 Hydroxyurea 500 mg PO DAILY 09/25/17 Isosorbide Mononitrate [Isosorbide Mononitrate ER] 30 mg PO DAILY 09/25/17 Lisinopril [Prinivil] 5 mg PO DAILY 09/25/17 Metformin HCl [Glucophage] 500 mg PO BID 09/25/17 Risperidone 3 mg PO DAILY 09/25/17 Albuterol 0.083% Nebulizer Shruthi [Ventolin 0.083% Nebulizer Soln -] 1 amp NEB RQID amp 09/27/17 Alcohol Antiseptic Pads [Alcohol Swabs] 1 each TP ACHS #1 box 09/27/17 Ascorbic Acid [Vitamin C -] 500 mg PO DAILY tablet 09/27/17 Budesonide/Formeterol Fumarate [SYMBICORT 160/4.5mcg -] 2 puff IH BID inhaler 09/27/17 Diltiazem Cd [Cardizem Cd -] 120 mg PO DAILY cap.cd.24h 09/27/17 Lancets [Lancets Thin] 1 each MC ACHS #100 each 09/27/17 Miscellaneous Medical Supply [Glucometer Device] 1 each SQ ASDIR #1 kit Miscellaneous Medical Supply [Glucometer Test Strips #100] 1 each SQ ASDIR #1 box 09/27/17 Ziprasidone [Geodon -] 80 mg PO DAILY capsule 09/27/17 Cephalexin Monohydrate [Keflex -] 500 mg PO BID 7 Days #14 capsule 04/04/18 Ibuprofen 800 mg PO Q8H PRN #20 tablet 04/04/18 Mupirocin Ointment [Bactroban 2% Ointment -] 1 applic TP BID #1 tube 04/04/18 Sulfamethoxazole/Trimethoprim [Bactrim Ds -] 1 tab PO BID #14 tablet 04/04/18 Asthma: Yes Cardiac Disorders: Yes (chest pain) COPD: No Diabetes: Yes (IDDM) HTN: Yes Hypercholesterolemia: Yes Psychiatric Problems: Yes (psych d/o) - Surgical History Orthopedic Surgery: Yes ([facility] 07/19/13) - Family Disease History Family Disease History: Diabetes: Father, Heart Disease: Father - Immunization History Immunization Up to Date: Yes - Suicide/Smoking/Psychosocial Hx Smoking History: Former smoker Have you smoked in the past 12 months: No If you are a former smoker, when did you quit?: 5 YEARS Information on smoking cessation initiated: No Hx Alcohol Use: No Drug/Substance Use Hx: No Substance Use Type: None Hx Substance Use Treatment: No Review of Systems - Review of Systems Able to Perform ROS?: Yes Is the patient limited Green[place]ic proficient: No Constitutional: No: Chills, Fever HEENTM: No: Symptoms Reported Respiratory: No: Symptoms reported Cardiac (ROS): No: Symptoms Reported ABD/GI: No: Nausea, Vomiting Musculoskeletal: Yes: Muscle Pain (right knee over prosthetic insertion site) Integumentary: Yes: Erythema (skin of right knee over prostetic insertion site) , Other (bleeding from skin of prosthetics insetion site) All Other Systems: Reviewed and Negative *Physical Exam - Vital Signs Last Vital Signs Temp Pulse Resp BP Pulse Ox 98.2 F 86 24 H 115/48 L 98 04/04/18 13:40 04/04/18 13:40 04/04/18 13:40 04/04/18 13:40 04/04/18 13:40 - Physical Exam Comments: 04/04/18 14:54 GENERAL: Well developed, well nourished. Awake and alert. No acute distress. CARDIOVASCULAR: Regular rate and rhythm. No murmurs, rubs, or gallops. PULMONARY: No evidence of respiratory distress. Lungs clear to auscultation bilaterally. No wheezing, rales or rhonchi. ABDOMINAL: Soft. Non-tender. Non-distended. No rebound or guarding. No organomegaly. Normoactive bowel sounds MUSCULOSKELETAL : mild tenderness below right knew amputation site with mild erythema to skin of right knee over prosthetic insertion site. SKIN: Warm and dry. Normal capillary refill. mild erythema to skin of prosthetic insertion site of right knee ampuation site. no active bleeding from site. NEUROLOGICAL: Alert, awake, appropriate. No motor deficits in the lower extremities. PSYCHIATRIC: Cooperative. Good eye contact. Appropriate mood and affect. General Appearance: Yes: Nourished, Appropriately Dressed. No: Apparent Distress Moderate Sedation - Procedure Monitoring Vital Signs: Procedure Monitoring Vital Signs Temperature 98.2 F 04/04/18 13:40 Pulse Rate 86 04/04/18 13:40 Respiratory Rate 24 H 04/04/18 13:40 Blood Pressure 115/48 L 04/04/18 13:40 O2 Sat by Pulse Oximetry (%) 98 04/04/18 13:40 Medical Decision Making - Medical Decision Making 04/04/18 14:56 Patient with insulin-dependent diabetes present with complaint of pain and bleeding from prosthetic insertion site of below right knee amputation done 4 years ago. Exam significant for mild erythema to skin of right knee prosthetic insertion site with no active bleeding. Patient symptoms consistent with cellulitis or skin of prostatic insertion site. Patient is stable for outpatient treatment with Keflex and Bactrim antibiotics and topical mupirocin with vascular follow- up. *DC/Admit/Observation/Transfer Diagnosis at time of Disposition: Cellulitis of right knee T2DM (type 2 diabetes mellitus) Qualifiers: Diabetes mellitus assisted insulin use: with welt sole layer use Diabetes mellitus complication status: without complication Qualified Code(s): E11.9 - Type 2 diabetes mellitus without complications - Discharge Dispostion Disposition: HOME Condition at time of disposition: Stable Decision to Admit order: No - Prescriptions Prescriptions: Cephalexin Monohydrate [Keflex -] 500 mg PO BID 7 Days #14 capsule Ibuprofen 800 mg PO Q8H PRN #20 tablet PRN Reason: pain Mupirocin Ointment [Bactroban 2% Ointment -] 1 applic TP BID #1 tube Sulfamethoxazole/Trimethoprim [Bactrim Ds -] 1 tab PO BID #14 tablet - Referrals Referrals: Saeed Madison MD [Primary Care Provider] - Melissa Rincon MD [Staff Physician] - - Patient Instructions Printed Discharge Instructions: DI for Cellulitis -- Adult Additional Instructions: Medication as prescribed. Follow-up with vascular surgeon as soon as possible for reassessment. - Post Discharge Activity
== END 2018-04-04 14:52 | disposition home or self-care (01) ==
LOC: JERFT 13:30
DX: T87.89 Other complications of amputation stump (principal); L03.115 Cellulitis of right lower limb; E11.51 Type 2 diabetes mellitus with diabetic peripheral angiopathy without gangrene; Z79.4 Long term (current) use of insulin; I10 Essential (primary) hypertension; E78.00 Pure hypercholesterolemia, unspecified; Z79.01 Long term (current) use of anticoagulants; Z89.511 Acquired absence of right leg below knee
CPT/HCPCS: 99281-25

== ENCOUNTER 2022-06-29 10:20 | Inpatient (IN) | payer OTHER ==
[2022-06-29 10:32] VITALS: BMI 25.4
[2022-06-29] MEDS ORDERED: VANCOMYCIN 1 GM in D5W (PRE-DOCKED) 1,000 MG/250 ML (RESTRICTED TO ID ONLY IVPB ONE (10:51)
[2022-06-29] MEDS ORDERED: PIPERACILLIN/TAZOB 4.5 GM 4.5 GM in DEXTROSE 5%-WATER 100 ML IVPB ONE (10:51)
[2022-06-29] MEDS ORDERED: ACETAMINOPHEN 1000 MG/100 ML BAG IVPB ONE (11:08)
[2022-06-29] MEDS ORDERED: ACETAMINOPHEN INJECTION 100 ML IVPB ONE (11:11)
[2022-06-29] MEDS ORDERED: VANCOMYCIN/WATER FOR INJ (PEG) 1,000 MG/200 ML BAG IVPB ONE (11:12)
[2022-06-29] MEDS ORDERED: PIPERACILLIN/TAZOB 4.5 GM 4.5 GM/100 ML BAG IVPB ONE (11:12)
[2022-06-29 12:53] LABS: BASO % 0.7 % (0-2.0); EOS % 1.7 % (0-4.5); HEMATOCRIT 38.3 % (35.4-49); HEMOGLOBIN 13.6 GM/dL (11.7-16.9); LYMPH % 11.9 % (8-40); MCH 32.4 pg (25.7-33.7); MCHC 35.6 g/dl (32.0-35.9); MEAN CELL VOLUME 91.2 fl (80-96); MEAN PLT VOLUME 8.3 fl (7.5-11.1); MONO % 8.5 % (3.8-10.2); NEUT % 77.2 % (42.8-82.8); PLATELET COUNT 624 10^3/uL (134-434); RDW 13.3 % (11.9-15.9); WHITE BLOOD COUNT 6.9 K/mm3 (4.0-10.0)
[2022-06-29 13:30] LABS: ERYTHROCYTE SEDIMENTATION RATE 81 mm/hr (0-20)
[2022-06-29 13:59] LABS: ALBUMIN 3.6 g/dl (3.4-5.0); BLOOD UREA NITROGEN 16.9 mg/dL (7-18); CALCIUM 9.4 mg/dL (8.5-10.1); MAGNESIUM 2.1 mg/dL (1.8-2.4)
[2022-06-29 14:04] LABS: BILIRUBIN,TOTAL 0.8 mg/dL (0.2-1); TOT PROT 7.9 g/dl (6.4-8.2)
[2022-06-29] MEDS: INSULIN SLIDING SCALE (NOVOLOG) 1 VIAL SQ SCH ×2 (17:25→21:48)
[2022-06-29] MEDS: INSULIN (LEVEMIR) 100 UNITS/ML UNITS SQ SCH (21:48)
[2022-06-29] MEDS: ATORVASTATIN CA 80 MG TABLET (FP) PO SCH (21:49)
[2022-06-29] MEDS: CARVEDILOL 12.5 MG TABLET (FP) PO SCH (21:49)
[2022-06-30] MEDS: INSULIN SLIDING SCALE (NOVOLOG) 1 VIAL SQ SCH ×4 (06:01→21:23)
[2022-06-30 08:57] LABS: BASO % 0.6 % (0-2.0); EOS % 2.3 % (0-4.5); HEMATOCRIT 40.3 % (35.4-49); HEMOGLOBIN 14.3 GM/dL (11.7-16.9); LYMPH % 15.9 % (8-40); MCH 32.1 pg (25.7-33.7); MCHC 35.5 g/dl (32.0-35.9); MEAN CELL VOLUME 90.6 fl (80-96); MEAN PLT VOLUME 8.3 fl (7.5-11.1); MONO % 8.9 % (3.8-10.2); NEUT % 72.3 % (42.8-82.8); PLATELET COUNT 604 10^3/uL (134-434); RBC 4.45 M/mm3 (4.00-5.60); RDW 13.5 % (11.9-15.9); WHITE BLOOD COUNT 7.3 K/mm3 (4.0-10.0)
[2022-06-30 09:32] LABS: ALBUMIN 3.4 g/dl (3.4-5.0); CREATININE 0.8 mg/dL (0.55-1.3)
[2022-06-30 09:33] LABS: BLOOD UREA NITROGEN 11.8 mg/dL (7-18); CALCIUM 9.5 mg/dL (8.5-10.1); MAGNESIUM 2.1 mg/dL (1.8-2.4)
[2022-06-30 09:34] LABS: TOT PROT 7.6 g/dl (6.4-8.2)
[2022-06-30 09:36] LABS: PHOSPHOROUS 2.6 mg/dL (2.5-4.9)
[2022-06-30] MEDS ORDERED: ASPIRIN 81 MG CHEWABLE TABLETS PO SCH (10:00)
[2022-06-30] MEDS ORDERED: VANCOMYCIN/WATER FOR INJ (PEG) 1,000 MG/200 ML BAG IVPB SCH ×2 (10:00)
[2022-06-30] MEDS: ENOXAPARIN NA (PORCINE) 40 MG/0.4 ML DISP.SYRIN SQ SCH (10:42)
[2022-06-30] MEDS: INSULIN (LEVEMIR) 100 UNITS/ML UNITS SQ SCH ×2 (10:42→21:23)
[2022-06-30] MEDS: CARVEDILOL 12.5 MG TABLET (FP) PO SCH ×2 (10:43→21:23)
[2022-06-30] MEDS: risperiDONE 1 MG TABLET PO SCH (11:11)
[2022-06-30] MEDS ORDERED: INSULIN (NOVOLOG) ASPART 100 UNITS/ML 10ML VIAL ONE ×4 (12:51→17:13)
[2022-06-30] MEDS: ACETAMINOPHEN 325 MG TABLET (FP) PO PRN (14:45)
[2022-06-30] MEDS ORDERED: PIPERACILLIN/TAZOBACTAM 3.375 GM VIAL IVPB ONE (17:19)
[2022-06-30] MEDS: PIPERACILLIN/TAZOB 3.375 GM 3.375 GM in DEXTROSE 5%-WATER - 50 ML IVPB SCH (17:24)
[2022-06-30] MEDS ORDERED: ALBUTEROL SO4 HFA INHALER IH PRN (19:42)
[2022-06-30] MEDS: ATORVASTATIN CA 80 MG TABLET (FP) PO SCH (21:23)
[2022-07-01] MEDS: PIPERACILLIN/TAZOB 3.375 GM 3.375 GM in DEXTROSE 5%-WATER - 50 ML IVPB SCH ×3 (01:22→17:15)
[2022-07-01] MEDS: INSULIN SLIDING SCALE (NOVOLOG) 1 VIAL SQ SCH ×4 (07:09→21:42)
[2022-07-01] MEDS: ENOXAPARIN NA (PORCINE) 40 MG/0.4 ML DISP.SYRIN SQ SCH (09:32)
[2022-07-01] MEDS: risperiDONE 1 MG TABLET PO SCH (09:35)
[2022-07-01] MEDS: CARVEDILOL 12.5 MG TABLET (FP) PO SCH ×2 (09:36→21:35)
[2022-07-01] MEDS: INSULIN (LEVEMIR) 100 UNITS/ML UNITS SQ SCH ×2 (09:57→21:37)
[2022-07-01] MEDS ORDERED: LIDOCAINE HCL 1%, 10 MG/ML (20ML VIAL) SQ ONE (10:59)
[2022-07-01] MEDS: ATORVASTATIN CA 80 MG TABLET (FP) PO SCH (21:35)
[2022-07-01] MEDS: ACETAMINOPHEN 325 MG TABLET (FP) PO PRN (21:36)
[2022-07-02] MEDS: PIPERACILLIN/TAZOB 3.375 GM 3.375 GM in DEXTROSE 5%-WATER - 50 ML IVPB SCH ×3 (02:35→17:20)
[2022-07-02] MEDS: INSULIN SLIDING SCALE (NOVOLOG) 1 VIAL SQ SCH ×4 (06:36→21:58)
[2022-07-02 08:54] LABS: BASO % 0.4 % (0-2.0); HEMATOCRIT 39.2 % (35.4-49); HEMOGLOBIN 13.7 GM/dL (11.7-16.9); LYMPH % 20.3 % (8-40); MCH 31.8 pg (25.7-33.7); MCHC 35.1 g/dl (32.0-35.9); MEAN CELL VOLUME 90.7 fl (80-96); MONO % 10.5 % (3.8-10.2); NEUT % 66.8 % (42.8-82.8); PLATELET COUNT 558 10^3/uL (134-434); RBC 4.32 M/mm3 (4.00-5.60); RDW 13.6 % (11.9-15.9); WHITE BLOOD COUNT 6.6 K/mm3 (4.0-10.0)
[2022-07-02 09:28] LABS: BLOOD UREA NITROGEN 11.9 mg/dL (7-18); MAGNESIUM 2.1 mg/dL (1.8-2.4)
[2022-07-02 09:32] LABS: CREATININE 0.9 mg/dL (0.55-1.3); PHOSPHOROUS 2.7 mg/dL (2.5-4.9)
[2022-07-02 09:33] LABS: BILIRUBIN,TOTAL 0.7 mg/dL (0.2-1); TOT PROT 6.9 g/dl (6.4-8.2)
[2022-07-02] MEDS: CLOPIDOGREL BISULFATE 75 MG TABLET (FP) PO SCH (10:45)
[2022-07-02] MEDS: CARVEDILOL 12.5 MG TABLET (FP) PO SCH ×2 (10:45→21:52)
[2022-07-02] MEDS: ENOXAPARIN NA (PORCINE) 40 MG/0.4 ML DISP.SYRIN SQ SCH (10:46)
[2022-07-02] MEDS: risperiDONE 1 MG TABLET PO SCH (10:51)
[2022-07-02] MEDS: INSULIN (LEVEMIR) 100 UNITS/ML UNITS SQ SCH ×2 (11:32→21:53)
[2022-07-02] MEDS: INSULIN (NOVOLOG) ASPART 100 UNITS/ML 10ML VIAL SQ SCH (16:25)
[2022-07-02] MEDS: ACETAMINOPHEN 325 MG TABLET (FP) PO PRN (16:35)
[2022-07-02] MEDS ORDERED: INSULIN (NOVOLOG) ASPART 100 UNITS/ML 10ML VIAL ONE (21:19)
[2022-07-02] MEDS: HYDROXYUREA 500 MG CAPSULE PO SCH (21:52)
[2022-07-02] MEDS: ATORVASTATIN CA 80 MG TABLET (FP) PO SCH (21:53)
[2022-07-03] MEDS: PIPERACILLIN/TAZOB 3.375 GM 3.375 GM in DEXTROSE 5%-WATER - 50 ML IVPB SCH ×3 (01:07→18:01)
[2022-07-03] MEDS ORDERED: INSULIN (NOVOLOG) ASPART 100 UNITS/ML 10ML VIAL ONE ×3 (05:09→22:27)
[2022-07-03] MEDS: INSULIN SLIDING SCALE (NOVOLOG) 1 VIAL SQ SCH ×4 (06:13→22:35)
[2022-07-03] MEDS: INSULIN (NOVOLOG) ASPART 100 UNITS/ML 10ML VIAL SQ SCH ×3 (06:13→16:27)
[2022-07-03 08:24] LABS: BASO % 0.6 % (0-2.0); EOS % 2.1 % (0-4.5); HEMATOCRIT 38.8 % (35.4-49); HEMOGLOBIN 13.6 GM/dL (11.7-16.9); LYMPH % 19.5 % (8-40); MCH 31.8 pg (25.7-33.7); MCHC 35.1 g/dl (32.0-35.9); MEAN CELL VOLUME 90.8 fl (80-96); MEAN PLT VOLUME 7.6 fl (7.5-11.1); MONO % 11.8 % (3.8-10.2); PLATELET COUNT 558 10^3/uL (134-434); RBC 4.27 M/mm3 (4.00-5.60); RDW 13.8 % (11.9-15.9); WHITE BLOOD COUNT 7.4 K/mm3 (4.0-10.0)
[2022-07-03 08:40] LABS: CALCIUM 9.5 mg/dL (8.5-10.1)
[2022-07-03 08:41] LABS: ALBUMIN 3.2 g/dl (3.4-5.0); BLOOD UREA NITROGEN 10.6 mg/dL (7-18)
[2022-07-03 08:45] LABS: PHOSPHOROUS 2.8 mg/dL (2.5-4.9)
[2022-07-03 08:46] LABS: BILIRUBIN,TOTAL 0.6 mg/dL (0.2-1); TOT PROT 7.1 g/dl (6.4-8.2)
[2022-07-03] MEDS: risperiDONE 1 MG TABLET PO SCH (09:21)
[2022-07-03] MEDS: CARVEDILOL 12.5 MG TABLET (FP) PO SCH ×2 (09:21→22:30)
[2022-07-03] MEDS: ENOXAPARIN NA (PORCINE) 40 MG/0.4 ML DISP.SYRIN SQ SCH (09:21)
[2022-07-03] MEDS: INSULIN (LEVEMIR) 100 UNITS/ML UNITS SQ SCH ×2 (09:22→22:33)
[2022-07-03] MEDS: CLOPIDOGREL BISULFATE 75 MG TABLET (FP) PO SCH (09:22)
[2022-07-03] MEDS: ASPIRIN 81 MG CHEWABLE TABLETS PO SCH (09:22)
[2022-07-03] MEDS ORDERED: HYDROXYUREA 500 MG CAPSULE PO SCH (10:00)
[2022-07-03] MEDS: ACETAMINOPHEN 325 MG TABLET (FP) PO PRN (22:29)
[2022-07-03] MEDS: ATORVASTATIN CA 80 MG TABLET (FP) PO SCH (22:30)
[2022-07-04] MEDS: PIPERACILLIN/TAZOB 3.375 GM 3.375 GM in DEXTROSE 5%-WATER - 50 ML IVPB SCH ×3 (01:42→17:29)
[2022-07-04] MEDS: ACETAMINOPHEN 325 MG TABLET (FP) PO PRN ×2 (06:49→21:37)
[2022-07-04] MEDS: INSULIN (NOVOLOG) ASPART 100 UNITS/ML 10ML VIAL SQ SCH ×3 (06:52→16:27)
[2022-07-04] MEDS: INSULIN SLIDING SCALE (NOVOLOG) 1 VIAL SQ SCH ×4 (07:04→21:40)
[2022-07-04] MEDS: INSULIN (LEVEMIR) 100 UNITS/ML UNITS SQ SCH ×2 (09:50→21:36)
[2022-07-04] MEDS: ENOXAPARIN NA (PORCINE) 40 MG/0.4 ML DISP.SYRIN SQ SCH (09:51)
[2022-07-04] MEDS: CARVEDILOL 12.5 MG TABLET (FP) PO SCH ×2 (09:51→21:36)
[2022-07-04] MEDS: ASPIRIN 81 MG CHEWABLE TABLETS PO SCH (09:51)
[2022-07-04] MEDS: CLOPIDOGREL BISULFATE 75 MG TABLET (FP) PO SCH (09:51)
[2022-07-04] MEDS: risperiDONE 1 MG TABLET PO SCH (11:47)
[2022-07-04] MEDS ORDERED: INSULIN (NOVOLOG) ASPART 100 UNITS/ML 10ML VIAL ONE (21:15)
[2022-07-04] MEDS: ATORVASTATIN CA 80 MG TABLET (FP) PO SCH (21:37)
[2022-07-05] MEDS: PIPERACILLIN/TAZOB 3.375 GM 3.375 GM in DEXTROSE 5%-WATER - 50 ML IVPB SCH ×3 (03:15→17:08)
[2022-07-05] MEDS: INSULIN SLIDING SCALE (NOVOLOG) 1 VIAL SQ SCH ×4 (06:37→21:52)
[2022-07-05] MEDS: INSULIN (NOVOLOG) ASPART 100 UNITS/ML 10ML VIAL SQ SCH ×3 (08:28→16:45)
[2022-07-05] MEDS: ENOXAPARIN NA (PORCINE) 40 MG/0.4 ML DISP.SYRIN SQ SCH (10:46)
[2022-07-05] MEDS: CLOPIDOGREL BISULFATE 75 MG TABLET (FP) PO SCH (10:46)
[2022-07-05] MEDS: ASPIRIN 81 MG CHEWABLE TABLETS PO SCH (10:46)
[2022-07-05] MEDS: CARVEDILOL 12.5 MG TABLET (FP) PO SCH ×2 (10:46→21:51)
[2022-07-05] MEDS: risperiDONE 1 MG TABLET PO SCH (10:47)
[2022-07-05] MEDS: INSULIN (LEVEMIR) 100 UNITS/ML UNITS SQ SCH ×2 (10:47→21:51)
[2022-07-05 14:34] LABS: ALBUMIN 3.3 g/dl (3.4-5.0); BILIRUBIN,TOTAL 0.6 mg/dL (0.2-1); BLOOD UREA NITROGEN 10.6 mg/dL (7-18); CALCIUM 9.4 mg/dL (8.5-10.1); CREATININE 0.9 mg/dL (0.55-1.3); TOT PROT 7.4 g/dl (6.4-8.2)
[2022-07-05] MEDS: ATORVASTATIN CA 80 MG TABLET (FP) PO SCH (21:51)
[2022-07-05] MEDS: ACETAMINOPHEN 325 MG TABLET (FP) PO PRN (21:51)
[2022-07-06] MEDS: PIPERACILLIN/TAZOB 3.375 GM 3.375 GM in DEXTROSE 5%-WATER - 50 ML IVPB SCH (01:18)
[2022-07-06] MEDS: INSULIN SLIDING SCALE (NOVOLOG) 1 VIAL SQ SCH ×4 (06:02→22:17)
[2022-07-06] MEDS: INSULIN (NOVOLOG) ASPART 100 UNITS/ML 10ML VIAL SQ SCH ×3 (06:02→16:40)
[2022-07-06 07:28] LABS: BASO % 0.6 % (0-2.0); EOS % 0.9 % (0-4.5); HEMATOCRIT 41.6 % (35.4-49); MCH 32.1 pg (25.7-33.7); MCHC 33.8 g/dl (32.0-35.9); MEAN CELL VOLUME 94.9 fl (80-96); MEAN PLT VOLUME 8.6 fl (7.5-11.1); MONO % 8.4 % (3.8-10.2); NEUT % 73.1 % (42.8-82.8); PLATELET COUNT 686 10^3/uL (134-434); RBC 4.38 M/mm3 (4.00-5.60); RDW 14.3 % (11.9-15.9); WHITE BLOOD COUNT 8.7 K/mm3 (4.0-10.0)
[2022-07-06] MEDS: ASPIRIN 81 MG CHEWABLE TABLETS PO SCH (09:44)
[2022-07-06] MEDS: ENOXAPARIN NA (PORCINE) 40 MG/0.4 ML DISP.SYRIN SQ SCH (09:44)
[2022-07-06] MEDS: INSULIN (LEVEMIR) 100 UNITS/ML UNITS SQ SCH ×2 (09:44→22:16)
[2022-07-06] MEDS: CLOPIDOGREL BISULFATE 75 MG TABLET (FP) PO SCH (09:44)
[2022-07-06] MEDS: CARVEDILOL 12.5 MG TABLET (FP) PO SCH ×2 (09:44→22:16)
[2022-07-06] MEDS: AMOX TR/POT CLAV 875MG/125MG TABLETS (FP) PO SCH ×2 (09:44→17:24)
[2022-07-06] MEDS: risperiDONE 1 MG TABLET PO SCH (10:17)
[2022-07-06] MEDS ORDERED: INSULIN (NOVOLOG) ASPART 100 UNITS/ML 10ML VIAL ONE (22:13)
[2022-07-06] MEDS: ATORVASTATIN CA 80 MG TABLET (FP) PO SCH (22:16)
[2022-07-07] MEDS: INSULIN (NOVOLOG) ASPART 100 UNITS/ML 10ML VIAL SQ SCH ×3 (06:00→16:44)
[2022-07-07] MEDS: INSULIN SLIDING SCALE (NOVOLOG) 1 VIAL SQ SCH ×4 (06:00→21:35)
[2022-07-07] MEDS: AMOX TR/POT CLAV 875MG/125MG TABLETS (FP) PO SCH ×2 (09:55→16:43)
[2022-07-07] MEDS: ASPIRIN 81 MG CHEWABLE TABLETS PO SCH (09:55)
[2022-07-07] MEDS: ENOXAPARIN NA (PORCINE) 40 MG/0.4 ML DISP.SYRIN SQ SCH (09:55)
[2022-07-07] MEDS: risperiDONE 1 MG TABLET PO SCH (09:55)
[2022-07-07] MEDS: CARVEDILOL 12.5 MG TABLET (FP) PO SCH ×2 (09:55→21:32)
[2022-07-07] MEDS: CLOPIDOGREL BISULFATE 75 MG TABLET (FP) PO SCH (09:55)
[2022-07-07] MEDS: INSULIN (LEVEMIR) 100 UNITS/ML UNITS SQ SCH ×2 (09:56→21:33)
[2022-07-07] MEDS ORDERED: FAMOTIDINE 20 MG TABLET PO ONE (15:37)
[2022-07-07] MEDS ORDERED: diphenhydrAMINE HCL 25 MG CAPSULE (FP) PO PRN (18:20)
[2022-07-07] MEDS: ATORVASTATIN CA 80 MG TABLET (FP) PO SCH (21:33)
[2022-07-07] MEDS: HYDROXYUREA 500 MG CAPSULE PO SCH (21:33)
[2022-07-07 22:24] VITALS: RESP 18
[2022-07-08] MEDS: INSULIN SLIDING SCALE (NOVOLOG) 1 VIAL SQ SCH (06:10)
[2022-07-08 08:46] VITALS: BP 123/73; PULSE 70; TEMP 98.3
[2022-07-08] MEDS: ENOXAPARIN NA (PORCINE) 40 MG/0.4 ML DISP.SYRIN SQ SCH (09:42)
[2022-07-08] MEDS: INSULIN (NOVOLOG) ASPART 100 UNITS/ML 10ML VIAL SQ SCH (09:43)
[2022-07-08] MEDS: ASPIRIN 81 MG CHEWABLE TABLETS PO SCH (09:45)
[2022-07-08] MEDS: CARVEDILOL 12.5 MG TABLET (FP) PO SCH (09:45)
[2022-07-08] MEDS: CLOPIDOGREL BISULFATE 75 MG TABLET (FP) PO SCH (09:45)
[2022-07-08] MEDS: INSULIN (LEVEMIR) 100 UNITS/ML UNITS SQ SCH (09:45)
[2022-07-08] MEDS: AMOX TR/POT CLAV 875MG/125MG TABLETS (FP) PO SCH (09:45)
[2022-07-08] MEDS ORDERED: risperiDONE 1 MG TABLET PO SCH (22:00)
== END 2022-07-08 11:03 | DRG 383 ==
LOC: JER 10:20 → JERBED 14:25 → J7W 16:18
PROVIDERS: ADMIT Internal Medicine; ATTEND Internal Medicine
PROC: 0H9KXZZ Drainage of Right Lower Leg Skin, External Approach (ICD-10-PCS; principal; 2022-07-01)
DX: L03.115 Cellulitis of right lower limb (principal); I25.10 Atherosclerotic heart disease of native coronary artery without angina pectoris; I10 Essential (primary) hypertension; E11.622 Type 2 diabetes mellitus with other skin ulcer; L97.818 Non-pressure chronic ulcer of other part of right lower leg with other specified severity; L02.415 Cutaneous abscess of right lower limb; B95.61 Methicillin susceptible Staphylococcus aureus infection as the cause of diseases classified elsewhere; B95.1 Streptococcus, group B, as the cause of diseases classified elsewhere; E11.65 Type 2 diabetes mellitus with hyperglycemia; E11.51 Type 2 diabetes mellitus with diabetic peripheral angiopathy without gangrene; E78.5 Hyperlipidemia, unspecified; D75.839 Thrombocytosis, unspecified; F39 Unspecified mood [affective] disorder; B18.1 Chronic viral hepatitis B without delta-agent; B18.2 Chronic viral hepatitis C; Z89.511 Acquired absence of right leg below knee; Z79.4 Long term (current) use of insulin
CPT/HCPCS: 0241U-QW; 36415; 71045-TC-FY; 73552-TC-RT-FY; 73700-TC-RT; 80053; 82962; 83036; 83735; 84100; 85025; 85651; 86140; 87040; 87070; 87077; 87081; 87186; 87205; 93005; 93010; 97116-GP; 97161-GP; 99285-25; C9803-CS; J8999; U0003; U0005

== ENCOUNTER 2023-11-06 10:33 | Inpatient (IN) | payer OTHER ==
[2023-11-06] MEDS ORDERED: ACETAMINOPHEN INJECTION 100 ML IVPB ONE (12:21)
[2023-11-06] MEDS: ACETAMINOPHEN 1000 MG/100 ML BAG IVPB ONE (12:34)
[2023-11-06 12:50] LABS: BASO % 0.8 % (0-2.0); EOS % 1.5 % (0-4.5); HEMATOCRIT 38.3 % (35.4-49); HEMOGLOBIN 13.4 GM/dL (11.7-16.9); LYMPH % 11.8 % (8-40); MCH 31.8 pg (25.7-33.7); MCHC 34.8 g/dl (32.0-35.9); MEAN CELL VOLUME 91.3 fl (80-96); MEAN PLT VOLUME 7.8 fl (7.5-11.1); MONO % 11.4 % (3.8-10.2); NEUT % 74.5 % (42.8-82.8); PLATELET COUNT 715 10^3/uL (134-434); RDW 16.5 % (11.9-15.9); WHITE BLOOD COUNT 9.8 K/mm3 (4.0-10.0)
[2023-11-06] MEDS ORDERED: PIPERACILLIN/TAZOB 4.5 GM 4.5 GM/100 ML BAG IVPB ONE ×2 (12:55→18:41)
[2023-11-06 12:57] LABS: INR 1.13 (0.83-1.09); PROTHROMBIN TIME (PATIENT) 12.7 SEC (9.7-13.0)
[2023-11-06 12:59] LABS: ACTIVATED PTT 36.2 SECONDS (25.2-36.5)
[2023-11-06 13:01] LABS: CHLORIDE 102 mmol/L (98-107); POTASSIUM 4.9 mmol/L (3.5-5.1); SODIUM 136 mmol/L (136-145)
[2023-11-06 13:04] LABS: ALBUMIN 4.2 g/dl (3.4-5.0); CALCIUM 10.3 mg/dL (8.5-10.1)
[2023-11-06 13:05] LABS: ANION GAP 6 mmol/L (4-13); BLOOD UREA NITROGEN 12.2 mg/dL (7-18); CO2 28 mmol/L (21-32)
[2023-11-06 13:06] LABS: GLUCOSE,RANDOM 261 mg/dL (74-106)
[2023-11-06 13:07] LABS: SGOT/AST 23 U/L (15-37); SGPT/ALT 36 U/L (13-61)
[2023-11-06 13:09] LABS: BILIRUBIN,TOTAL 1.5 mg/dL (0.2-1); TOT PROT 7.9 g/dl (6.4-8.2)
[2023-11-06] MEDS: PIPERACILLIN/TAZOB 4.5 GM 4.5 GM in DEXTROSE 5%-WATER 100 ML IVPB ONE (13:09)
[2023-11-06 13:10] LABS: ALK PHOS 96 U/L (45-117)
[2023-11-06 13:34] LABS: ERYTHROCYTE SEDIMENTATION RATE 18 mm/hr (0-20)
[2023-11-06 13:59] LABS: HIV INTERPRETATION NEGATIVE (NEGATIVE)
[2023-11-06] MEDS ORDERED: DOXYCYCLINE HYCLATE 100 MG VIAL ONE (15:28)
[2023-11-06] MEDS ORDERED: INSULIN ASPART SLIDING SCALE (NOVOLOG) 1 VIAL SQ ONE ×2 (15:40→21:54)
[2023-11-06] MEDS: INSULIN ASPART SLIDING SCALE (NOVOLOG) 1 VIAL SQ SCH (15:46)
[2023-11-06] MEDS: DOXYCYCLINE INJECTION 100 MG in DEXTROSE 5%-WATER 100 ML IVPB SCH (16:21)
[2023-11-06] MEDS: PIPERACILLIN/TAZOB 4.5 GM 4.5 GM in DEXTROSE 5%-WATER 100 ML IVPB SCH (18:46)
[2023-11-06] MEDS ORDERED: risperiDONE 0.5 MG TABLET ONE (21:38)
[2023-11-06] MEDS ORDERED: HEPARIN NA (PORCINE) 5,000 UNITS/ML 1ML VIAL ONE (21:38)
[2023-11-06] MEDS ORDERED: CARVEDILOL 6.25 MG TABLET (FP) ONE (21:38)
[2023-11-06] MEDS ORDERED: ATORVASTATIN CA 80 MG TABLET (FP) ONE (21:38)
[2023-11-06] MEDS ORDERED: INSULIN (LEVEMIR) 100 UNITS/ML UNITS SQ ONE (21:40)
[2023-11-06] MEDS ORDERED: PIPERACILLIN/TAZOB 4.5 GM 4.5 GM in DEXTROSE 5%-WATER 100 ML IVPB SCH (22:00)
[2023-11-06] MEDS: CARVEDILOL 12.5 MG TABLET (FP) PO SCH (22:02)
[2023-11-06] MEDS: HEPARIN NA (PORCINE) 5,000 UNITS/ML 1ML VIAL SQ SCH (22:02)
[2023-11-06] MEDS: INSULIN (LEVEMIR) 100 UNITS/ML UNITS SQ SCH (22:02)
[2023-11-06] MEDS: ATORVASTATIN CA 80 MG TABLET (FP) PO SCH (22:03)
[2023-11-06] MEDS: risperiDONE 1 MG TABLET PO SCH (22:04)
[2023-11-07] MEDS ORDERED: AMPICILLIN NA/SULBACTAM NA 1.5 GM VIAL ONE (03:18)
[2023-11-07] MEDS: AMPICILLIN NA/SULBACTAM NA 1.5 GM in SODIUM CHLORIDE 100 ML IVPB SCH ×2 (03:26→14:40)
[2023-11-07] MEDS ORDERED: DOXYCYCLINE HYCLATE 100 MG VIAL ONE (04:31)
[2023-11-07] MEDS: DOXYCYCLINE INJECTION 100 MG in DEXTROSE 5%-WATER 100 ML IVPB SCH (04:45)
[2023-11-07 06:30] LABS: POTASSIUM 4.1 mmol/L (3.5-5.1)
[2023-11-07 06:32] LABS: BLOOD UREA NITROGEN 10.7 mg/dL (7-18)
[2023-11-07 06:35] LABS: CREATININE 0.8 mg/dL (0.55-1.3)
[2023-11-07] MEDS ORDERED: INSULIN ASPART SLIDING SCALE (NOVOLOG) 1 VIAL SQ ONE (07:05)
[2023-11-07 07:37] LABS: BASO % 0.8 % (0-2.0); EOS % 1.4 % (0-4.5); HEMATOCRIT 37.3 % (35.4-49); HEMOGLOBIN 12.9 GM/dL (11.7-16.9); LYMPH % 11.5 % (8-40); MCH 31.8 pg (25.7-33.7); MCHC 34.7 g/dl (32.0-35.9); MEAN CELL VOLUME 91.6 fl (80-96); NEUT % 77.3 % (42.8-82.8); PLATELET COUNT 641 10^3/uL (134-434); RBC 4.07 M/mm3 (4.00-5.60); RDW 16.4 % (11.9-15.9); WHITE BLOOD COUNT 9.8 K/mm3 (4.0-10.0)
[2023-11-07] MEDS: ISOSORBIDE MONONITRATE 30 MG TAB.SR.24H (FP) PO SCH (11:02)
[2023-11-07] MEDS: CLOPIDOGREL BISULFATE 75 MG TABLET (FP) PO SCH (11:02)
[2023-11-07] MEDS: ASPIRIN COATED 81 MG TABLET.EC PO SCH (11:02)
[2023-11-07 12:16] VITALS: BMI 27.1
[2023-11-07] MEDS: ACETAMINOPHEN 500 MG TABLET (FP) PO PRN (14:39)
[2023-11-08] MEDS: HYDROXYUREA 500 MG CAPSULE PO SCH (10:53)
[2023-11-08 17:30] LABS: HEMOGLOBIN 12.9 GM/dL (11.7-16.9); MCH 31.6 pg (25.7-33.7); MCHC 34.8 g/dl (32.0-35.9); MEAN CELL VOLUME 90.9 fl (80-96); MEAN PLT VOLUME 7.4 fl (7.5-11.1); PLATELET COUNT 667 10^3/uL (134-434); RBC 4.07 M/mm3 (4.00-5.60); RDW 16.6 % (11.9-15.9)
[2023-11-08 17:57] LABS: POTASSIUM 4.1 mmol/L (3.5-5.1)
[2023-11-08 17:58] LABS: ALBUMIN 3.4 g/dl (3.4-5.0); CALCIUM 8.9 mg/dL (8.5-10.1)
[2023-11-08 18:00] LABS: MAGNESIUM 1.9 mg/dL (1.8-2.4)
[2023-11-08 18:02] LABS: CREATININE 0.9 mg/dL (0.55-1.3); PHOSPHOROUS 2.7 mg/dL (2.5-4.9)
[2023-11-08 18:04] LABS: BILIRUBIN,TOTAL 1.2 mg/dL (0.2-1)
[2023-11-09 08:01] LABS: HEMATOCRIT 38.6 % (35.4-49); MCH 31.1 pg (25.7-33.7); MCHC 33.6 g/dl (32.0-35.9); MEAN CELL VOLUME 92.3 fl (80-96); MEAN PLT VOLUME 7.5 fl (7.5-11.1); PLATELET COUNT 668 10^3/uL (134-434); RBC 4.18 M/mm3 (4.00-5.60); RDW 16.1 % (11.9-15.9); WHITE BLOOD COUNT 11.1 K/mm3 (4.0-10.0)
[2023-11-09 08:25] LABS: POTASSIUM 4.2 mmol/L (3.5-5.1)
[2023-11-09 08:28] LABS: ALBUMIN 3.5 g/dl (3.4-5.0); CALCIUM 8.9 mg/dL (8.5-10.1)
[2023-11-09 08:29] LABS: BLOOD UREA NITROGEN 11.7 mg/dL (7-18); MAGNESIUM 1.9 mg/dL (1.8-2.4)
[2023-11-09 08:32] LABS: CREATININE 0.9 mg/dL (0.55-1.3); PHOSPHOROUS 2.5 mg/dL (2.5-4.9)
[2023-11-09 08:33] LABS: BILIRUBIN,TOTAL 1.7 mg/dL (0.2-1); TOT PROT 6.9 g/dl (6.4-8.2)
[2023-11-09] MEDS: DOXYCYCLINE HYCLATE 100 MG CAPSULE PO SCH (09:48)
[2023-11-09 09:57] LABS: BILIRUBIN,DIRECT 0.3 mg/dL (0.0-0.2)
[2023-11-09] MEDS: AMOX TR/POT CLAV 875MG/125MG TABLETS (FP) PO SCH (17:07)
[2023-11-09] MEDS ORDERED: traMADol HCL 50 MG TABLET PO PRN ×2 (18:24→18:30)
[2023-11-09] MEDS: MUPIROCIN CA 2% TOPICAL CREAM 15 GM TUBE TP SCH (22:34)
[2023-11-10 09:16] LABS: HEMATOCRIT 37.2 % (35.4-49); HEMOGLOBIN 12.7 GM/dL (11.7-16.9); MCH 31.4 pg (25.7-33.7); MCHC 34.1 g/dl (32.0-35.9); MEAN CELL VOLUME 91.9 fl (80-96); MEAN PLT VOLUME 8.1 fl (7.5-11.1); PLATELET COUNT 641 10^3/uL (134-434); RBC 4.04 M/mm3 (4.00-5.60); RDW 15.9 % (11.9-15.9); WHITE BLOOD COUNT 9.8 K/mm3 (4.0-10.0)
[2023-11-10 09:40] LABS: POTASSIUM 4.5 mmol/L (3.5-5.1)
[2023-11-10 09:42] LABS: BLOOD UREA NITROGEN 12.4 mg/dL (7-18); CALCIUM 8.9 mg/dL (8.5-10.1)
[2023-11-10 09:43] LABS: ALBUMIN 3.3 g/dl (3.4-5.0); MAGNESIUM 2.1 mg/dL (1.8-2.4)
[2023-11-10 09:46] LABS: CREATININE 0.8 mg/dL (0.55-1.3); PHOSPHOROUS 2.8 mg/dL (2.5-4.9)
[2023-11-10 09:47] LABS: BILIRUBIN,TOTAL 1.3 mg/dL (0.2-1); TOT PROT 6.8 g/dl (6.4-8.2)
[2023-11-11 08:55] LABS: BASO % 0.6 % (0-2.0); EOS % 2.3 % (0-4.5); HEMATOCRIT 36.1 % (35.4-49); HEMOGLOBIN 12.5 GM/dL (11.7-16.9); LYMPH % 10.8 % (8-40); MCH 31.4 pg (25.7-33.7); MCHC 34.6 g/dl (32.0-35.9); MEAN CELL VOLUME 90.6 fl (80-96); MEAN PLT VOLUME 7.9 fl (7.5-11.1); MONO % 10.6 % (3.8-10.2); NEUT % 75.7 % (42.8-82.8); PLATELET COUNT 671 10^3/uL (134-434); RBC 3.99 M/mm3 (4.00-5.60); WHITE BLOOD COUNT 9.8 K/mm3 (4.0-10.0)
[2023-11-11 09:19] LABS: POTASSIUM 4.2 mmol/L (3.5-5.1)
[2023-11-11 09:23] LABS: ALBUMIN 3.3 g/dl (3.4-5.0); MAGNESIUM 2.2 mg/dL (1.8-2.4)
[2023-11-11 09:26] LABS: CREATININE 0.9 mg/dL (0.55-1.3)
[2023-11-11 09:27] LABS: PHOSPHOROUS 2.7 mg/dL (2.5-4.9)
[2023-11-11 09:28] LABS: BILIRUBIN,TOTAL 1.3 mg/dL (0.2-1); TOT PROT 6.9 g/dl (6.4-8.2)
[2023-11-11 14:42] VITALS: RESP 18
[2023-11-12 11:05] VITALS: BP 128/61; PULSE 70; TEMP 98.9
== END 2023-11-12 12:05 | DRG 349 ==
LOC: JER 10:33 → UNDOADMOB 13:37 → INTOOBSV 13:37 → JERBED 13:37 → J6S 11-07 09:17 → OBSVTOIN 11-09 10:30
PROVIDERS: ADMIT Internal Medicine; ATTEND Internal Medicine
DX: T87.43 Infection of amputation stump, right lower extremity (principal); E11.51 Type 2 diabetes mellitus with diabetic peripheral angiopathy without gangrene; E11.65 Type 2 diabetes mellitus with hyperglycemia; B18.1 Chronic viral hepatitis B without delta-agent; E78.5 Hyperlipidemia, unspecified; I25.10 Atherosclerotic heart disease of native coronary artery without angina pectoris; Z89.511 Acquired absence of right leg below knee; E11.622 Type 2 diabetes mellitus with other skin ulcer; F31.89 Other bipolar disorder; D47.3 Essential (hemorrhagic) thrombocythemia; I10 Essential (primary) hypertension; L97.818 Non-pressure chronic ulcer of other part of right lower leg with other specified severity; B18.2 Chronic viral hepatitis C; Y83.8 Other surgical procedures as the cause of abnormal reaction of the patient, or of later complication, without mention of misadventure at the time of the procedure
CPT/HCPCS: 36415; 73564-TC-RT-FY; 73701-TC-RT; 80048; 80053; 82248; 82962; 83036; 83735; 84100; 85025; 85027; 85610; 85651; 85730; 86140; 86803; 87070; 87186; 87205; 87389; 87522; 93926-TC; 99285-25; G0378; J0131; J1644; J8999; Q9967

== ENCOUNTER 2023-11-19 13:54 | Emergency (ER) | payer OTHER ==
[2023-11-19 14:47] VITALS: RESP 15; BMI 62.2
[2023-11-19] MEDS ORDERED: KETOROLAC TROMETHAMINE 30 MG/1 ML VIAL ONE (15:43)
[2023-11-19] MEDS: KETOROLAC TROMETHAMINE 30 MG/1 ML VIAL IM ONE (15:48)
[2023-11-19 18:43] VITALS: BP 145/65; PULSE 79; TEMP 97.9
== END 2023-11-19 21:55 | disposition home or self-care (01) ==
LOC: JER 13:54
PROC: 3E0133Z Introduction of Anti-inflammatory into Subcutaneous Tissue, Percutaneous Approach (ICD-10-PCS; principal; 2023-11-19)
DX: M79.604 Pain in right leg (principal)
CPT/HCPCS: 73590-TC-RT-FY; 99284-25